=== PATIENT | female | born 1950 | race Caucasian/White ===

== ENCOUNTER 2021-02-23 03:25 | Emergency (ER) | payer OTHER, BC ==
[~2021-02-23] VITALS: Ht 157.5 cm; Wt 55.8 kg
[2021-02-23 04:22] LABS: CALCIUM 8.8 mg/dL (8.5-10.1); CREATININE 1.2 mg/dL (0.6-1.0); POTASSIUM 3.4 mmol/L (3.5-5.1)
[2021-02-23 04:28] LABS: ALBUMIN 3.7 g/dL (3.4-5.0); TOTAL BILIRUBIN 0.6 mg/dL (0.2-1.0); TOTAL PROTEIN 7.3 g/dL (6.4-8.2)
[2021-02-23 04:33] LABS: ABSOLUTE NEUTROPHILS 8.4 thou/uL (1.4-8.2); BASOPHILS 0.7 % (0.0-2.0); EOSINOPHILS 0.8 % (0.0-3.0); HEMATOCRIT 39.6 % (37.0-47.0); HEMOGLOBIN 13.2 gm/dL (12.0-15.0); LYMPHOCYTES 17.8 % (24.0-44.0); MCH 30.3 pg (26.0-34.0); MCHC 33.3 g/dL (28.0-37.0); PLATELET COUNT 272 thou/uL (150-400); POLYS 75.7 % (36.0-66.0); RBC 4.35 mil/uL (4.20-5.00); RDW 14.5 % (10.5-14.5)
[2021-02-23 04:36] LABS: URINE BILIRUBIN NEGATIVE (Negative); URINE BLOOD 3+ (Negative); URINE CLARITY CLEAR; URINE COLOR YELLOW; URINE GLUCOSE-RANDOM* NEGATIVE (Negative); URINE KETONES NEGATIVE (Negative); URINE LEUKOCYTES-REFLEX NEGATIVE (Negative); URINE NITRITE-REFLEX NEGATIVE (Negative); URINE PROTEIN (DIPSTICK) NEGATIVE (Negative); URINE SPECIFIC GRAVITY 1.015 (1.005-1.035); URINE UROBILINOGEN 0.2 E.U./dl (0.2-1.0)
[2021-02-23 04:49] LABS: BACTERIA-REFLEX 1-9 Few /HPF (None Seen); CASTS None Seen /LPF (None Seen); CRYSTALS None Seen /LPF (None Seen); MUCUS 0-3 Light strn/LPF (None Seen); SQUAMOUS 0-3 Few /LPF (0-3); URINE RBC >20 Many /HPF (NONE SEEN); URINE WBC-REFLEX 0-5 Rare /HPF (0-5)
[2021-02-23] MEDS ORDERED: VERTICALM25 MG PO (05:51)
[2021-02-23] MEDS ORDERED: LEVOTHYROXINE75 MC1 PO (05:52)
[2021-02-23] MEDS ORDERED: [UNRECOGNIZED DRUG - OTHER] PO (05:53)
[2021-02-23] MEDS ORDERED: CALCIUM CITRAT250 MG PO (05:54)
[2021-02-23] MEDS ORDERED: VITAMIN D3125 MC2 PO (06:56)
[2021-02-23] MEDS ORDERED: MAGNESIUM CITR125 MG PO (06:57)
[2021-02-23] MEDS ORDERED: OMEGA (06:57)
[2021-02-23 07:45] VITALS: BP 147/64
[2021-02-23] MEDS ORDERED: ZOFRAN ODT4 MG PO ×2 (07:45→07:52)
[2021-02-23] MEDS ORDERED: NORCO5 PO ×2 (07:45→07:52)
== END 2021-02-23 07:45 | disposition home or self-care (01) ==
LOC: ER 03:25
PROVIDERS: Emergency Medicine
DX: N20.0 Calculus of kidney (principal)